=== PATIENT | female | born 1950 | race Caucasian/White ===

== ENCOUNTER 2018-01-12 21:02 | Emergency (ER) | payer MEDICARE ==
[~2018-01-12] VITALS: Ht 160 cm; Wt 56.8 kg
[2018-01-12] MEDS ORDERED: OMNIPAQUE 350 MG/ML, 100ML BOTTLE ONE (22:00)
[2018-01-12] MEDS ORDERED: ASPIRIN 81 MG TABLET CHEW PO ONE (22:00)
[2018-01-12] MEDS ORDERED: ASPIRIN 81 MG TABLET CHEW ONE (22:05)
[2018-01-12 22:13] LABS: BASOPHILS # (AUTO) 0.05 x10^3/uL (0-0.1); BASOPHILS % (AUTO) 1 % (0-1); EOSINOPHILS # (AUTO) 0.36 x10^3/uL (0-0.4); EOSINOPHILS % (AUTO) 6 % (1-7); LYMPHOCYTES # (AUTO) 1.24 x10^3/uL (1-3.4); LYMPHOCYTES % (AUTO) 19 % (22-44); MD NO; MEAN CORPUSCULAR HEMOGLOBIN 29.9 pg (27.0-34.8); MEAN CORPUSCULAR VOLUME 88.1 fL (80-100); MEAN PLATELET VOLUME 7.8 fL (7.4-10.4); MONOCYTES # (AUTO) 0.71 x10^3/uL (0.2-0.8); MONOCYTES % (AUTO) 11 % (2-9); NEUTROPHILS # (AUTO) 4.08 x10^3/uL (1.8-6.8); NEUTROPHILS % (AUTO) 63 % (42-75); PLATELET COUNT 286 x10^3/uL (130-400); RED BLOOD COUNT 4.13 x10^6/uL (3.82-5.3)
[2018-01-12 22:24] LABS: ALANINE AMINOTRANSFERASE 21 U/L (12-78); ALBUMIN 2.7 g/dL (3.4-5.0); ANION GAP 5 mmol/L (5-15); CHLORIDE 108 mmol/L (98-107); CREATININE 0.79 mg/dL (0.55-1.02)
[2018-01-12 22:28] LABS: ALKALINE PHOSPHATASE 65 U/L (45-117); BILIRUBIN,TOTAL 0.3 mg/dL (0.2-1.0); TOTAL PROTEIN 6.4 g/dL (6.4-8.2); TROPONIN I < 0.015 ng/mL (0.000-0.045)
[2018-01-12 23:32] VITALS: BP 102/58
== END 2018-01-13 00:33 | disposition home or self-care (01) ==
LOC: ED 23:59
DX: R07.9 Chest pain, unspecified (principal); Z87.891 Personal history of nicotine dependence; J44.9 Chronic obstructive pulmonary disease, unspecified
CPT/HCPCS: 36415; 71275; 80053; 83690; 84484; 85025; 93005; 99285; Q9967

== ENCOUNTER → 2018-03-13 | Outpatient (CLI) | payer MEDICARE | END | disposition home or self-care (01) | LOC: CFH 08:33 | PROVIDERS: ATTEND Internal Medicine Cardiovascular Disease | DX: I35.8 Other nonrheumatic aortic valve disorders (principal) | CPT/HCPCS: 93306 ==

== ENCOUNTER 2018-04-29 08:46 | Emergency (ER) | payer MEDICARE ==
[~2018-04-29] VITALS: Ht 162.6 cm; Wt 58.9 kg
[2018-04-29 08:47] VITALS: BP 117/72
[2018-04-29] MEDS ORDERED: PROPARACAINE OPHTH 0.5%, 15ML EACHEYE ONE (09:30)
[2018-04-29] MEDS ORDERED: FLUORESCEIN OPHTHALMIC 1 MG STRIP EACHEYE ONE (09:30)
== END 2018-04-29 09:52 | disposition home or self-care (01) ==
LOC: ED 09:46
DX: H10.021 Other mucopurulent conjunctivitis, right eye (principal); J44.9 Chronic obstructive pulmonary disease, unspecified
CPT/HCPCS: 99283

== ENCOUNTER → 2018-07-17 | Outpatient (CLI) | payer MEDICARE | END | disposition home or self-care (01) | LOC: CFH 10:29 | PROVIDERS: ATTEND Nurse Practitioner Family | DX: J47.9 Bronchiectasis, uncomplicated (principal); J84.10 Pulmonary fibrosis, unspecified | CPT/HCPCS: 71250 ==

== ENCOUNTER 2018-08-30 12:24 | Outpatient (CLI) | payer MEDICARE | END 2018-08-30 23:59 | disposition home or self-care (01) | LOC: LAB 12:24 | PROVIDERS: ATTEND Nurse Practitioner Family | DX: B37.1 Pulmonary candidiasis (principal); R06.00 Dyspnea, unspecified; R91.8 Other nonspecific abnormal finding of lung field | CPT/HCPCS: 87070; 87102; 87186; 87205 ==

== ENCOUNTER → 2018-11-02 | Outpatient (CLI) | payer MEDICARE | END | disposition home or self-care (01) | LOC: CFH 10:17 | PROVIDERS: ATTEND Nurse Practitioner Family | DX: R91.8 Other nonspecific abnormal finding of lung field (principal); J47.9 Bronchiectasis, uncomplicated | CPT/HCPCS: 71250 ==

== ENCOUNTER 2019-04-11 09:00 | Day surgery (SDC) | payer MEDICARE ==
[~2019-04-11] VITALS: Ht 161.3 cm; Wt 56.3 kg
[~2019-04-11 09:00] MED LIST: ITRA100C PO; TIMO5DRO28 EACHEYE
[2019-04-11] MEDS ORDERED: SODIUM CHLORIDE 0.9% 1,000 ML IV ONE (09:15)
[2019-04-11 09:32] VITALS: BP 127/83
[2019-04-11] MEDS ORDERED: FENTANYL PF 100 MCG/2ML ONE (10:37)
[2019-04-11] MEDS ORDERED: MIDAZOLAM 1 MG/ML, 5ML ONE (10:37)
[2019-04-11] MEDS ORDERED: LIDOCAINE 2%, 20ML ONE (19:41)
[2019-04-11] MEDS ORDERED: LIDOCAINE GEL 2%, 5ML ONE (19:41)
== END 2019-04-11 14:00 | disposition home or self-care (01) ==
LOC: OUT 09:00
PROVIDERS: ATTEND Internal Medicine Critical Care Medicine
DX: R91.8 Other nonspecific abnormal finding of lung field (principal); J18.9 Pneumonia, unspecified organism; J40 Bronchitis, not specified as acute or chronic; Z87.891 Personal history of nicotine dependence; Z88.8 Allergy status to other drugs, medicaments and biological substances
CPT/HCPCS: 31624; 87015; 87070; 87102; 87116; 87205; 87206; 88112; 88305; 88312; 99152; 99153; J2250; J3010; J7030; 88108

== ENCOUNTER 2019-12-19 12:15 | Outpatient (CLI) | payer MEDICARE | END 2019-12-19 23:59 | disposition home or self-care (01) | LOC: CFH 12:15 | PROVIDERS: ATTEND Internal Medicine Infectious Disease | DX: R91.8 Other nonspecific abnormal finding of lung field (principal); J84.10 Pulmonary fibrosis, unspecified; J47.9 Bronchiectasis, uncomplicated; A31.0 Pulmonary mycobacterial infection | CPT/HCPCS: 71250 ==

== ENCOUNTER → 2020-07-15 | Outpatient (CLI) | payer MEDICARE | END | disposition home or self-care (01) | LOC: CFH 09:57 | PROVIDERS: ATTEND Nurse Practitioner Family | DX: J47.9 Bronchiectasis, uncomplicated (principal); J84.10 Pulmonary fibrosis, unspecified; A31.0 Pulmonary mycobacterial infection; R91.8 Other nonspecific abnormal finding of lung field | CPT/HCPCS: 71250 ==

== ENCOUNTER 2020-10-21 08:00 | Outpatient (CLI) | payer MEDICARE ==
[2020-10-21 08:22] LABS: BASOPHILS % (AUTO) 3 % (0-1); EOSINOPHILS % (AUTO) 4 % (1-7); LYMPHOCYTES % (AUTO) 14 % (22-44); MEAN CORPUSCULAR HEMOGLOBIN 30.1 pg (27.0-34.8); MEAN CORPUSCULAR HGB CONC 32.8 g/dL (32.4-35.8); MEAN PLATELET VOLUME 8.5 fL (7.4-10.4); MONOCYTES % (AUTO) 10 % (2-9); NEUTROPHILS % (AUTO) 70 % (42-75); PLATELET COUNT 146 x10^3/uL (130-400); RED BLOOD COUNT 4.29 x10^6/uL (3.82-5.3); RED CELL DISTRIBUTION WIDTH 15.1 % (9.6-15.2)
[2020-10-21 08:24] LABS: MD NO
[2020-10-21 08:29] LABS: ALANINE AMINOTRANSFERASE 21 U/L (12-78); ALBUMIN 3.3 g/dL (3.4-5.0); ANION GAP 4 mmol/L (5-15); CALCIUM 9.1 mg/dL (8.5-10.1); CHLORIDE 110 mmol/L (98-107)
[2020-10-21 08:32] LABS: ALKALINE PHOSPHATASE 72 U/L (45-117); BILIRUBIN,TOTAL 0.4 mg/dL (0.2-1.0); CREATININE 0.69 mg/dL (0.55-1.02); TOTAL PROTEIN 7.5 g/dL (6.4-8.2)
== END 2020-10-21 23:59 | disposition home or self-care (01) ==
LOC: LAB 08:00
PROVIDERS: ATTEND Internal Medicine
DX: D47.2 Monoclonal gammopathy (principal); K86.9 Disease of pancreas, unspecified
CPT/HCPCS: 36415; 80053; 82784; 83883; 84155; 84165; 85025; 86301; 86334

== ENCOUNTER → 2020-12-24 | Outpatient (CLI) | payer MEDICARE ==
[~2020-12-24] MED LIST changes: +CHOL10003 PO; +DORZ10DR7 EACHEYE; +FLUO60SO3 TP; +MULT-717 PO; +Naproxen PO; +PRED5DRO15 LEFTEYE; +PRED5DRO15 RIGHTEYE
== END | disposition home or self-care (01) ==
LOC: STAR 08:01
PROVIDERS: ATTEND Internal Medicine
DX: Z01.818 Encounter for other preprocedural examination (principal); K86.89 Other specified diseases of pancreas; I45.10 Unspecified right bundle-branch block
CPT/HCPCS: 93005

== ENCOUNTER 2020-12-30 10:55 | Day surgery (SDC) | payer MEDICARE ==
[~2020-12-30] VITALS: Ht 160 cm; Wt 54.6 kg
[2020-12-30 11:22] VITALS: BP 119/83
[2020-12-30] MEDS ORDERED: CHLORHEXIDINE 15 ML UDC ONE (11:24)
[2020-12-30] MEDS ORDERED: CHLORHEXIDINE 15 ML UDC PO ONE (11:30)
[2020-12-30] MEDS ORDERED: LACTATED RINGERS 1,000 ML IV SCH (11:30)
[2020-12-30] MEDS ORDERED: PROPOFOL 10 MG/ML, 20ML ONE (12:30)
[2020-12-30] MEDS ORDERED: PROMETHAZINE 25 MG/ML, 1ML IVPush PRN (13:30)
[2020-12-30] MEDS ORDERED: PROMETHAZINE 25 MG SUPP PR PRN (13:30)
[2020-12-30] MEDS ORDERED: ONDANSETRON 2MG/ML, 2ML IVPush PRN (13:30)
[2020-12-30] MEDS ORDERED: OXYcodone 5 MG/5 ML ORAL.SOL UDC PO PRN (13:30)
[2020-12-30] MEDS ORDERED: FENTANYL PF 100 MCG/2ML IV PRN (13:30)
[2020-12-30] MEDS ORDERED: ACETAMINOPHEN 325 MG TABLET PO PRN (13:30)
[2020-12-30] MEDS ORDERED: METHOCARBAMOL 1,000 MG in DEXTROSE 5% 100 ML IV PRN (13:30)
== END 2020-12-30 14:30 | disposition home or self-care (01) ==
LOC: OUT 10:55
PROVIDERS: ATTEND Internal Medicine
DX: K86.2 Cyst of pancreas (principal); K22.10 Ulcer of esophagus without bleeding; Z88.8 Allergy status to other drugs, medicaments and biological substances
CPT/HCPCS: 43259; J7120; J2704